=== PATIENT | female | born 1985 | race Caucasian/White ===

== ENCOUNTER 2024-11-23 12:03 | Emergency (ER) | payer OTHER, SELFPAY ==
[2024-11-23 12:05] VITALS: BP 146/90
--- NOTE | 2024-11-23 13:26 | EDRN ---
Pt weka and assisted to BR by this RN and back. Pt more coherehent than on arrival and moving better.
--- NOTE | 2024-11-23 14:42 | ED.GENMED ---
History of Present Illness
<James Parham DO - Last Filed: 11/25/24 00:14>
General
Chief Complaint: Abdominal Pain
Source: patient
Time Seen by Provider: 11/23/24 14:00
History of Present Illness
History of Present Illness:
39-year-old female presents emergency room complaining of right lower quad abdominal pain. Patient began having the pain approximately 3 days ago. Pain started after patient had a seizure. She does have a known history of epilepsy for which she
does take antiepileptics. She has had nausea vomiting diarrhea and abdominal discomfort after seizures previously but this is lasting longer and the pain seems worse today. She has had a tummy tuck but no intra-abdominal operations. She has an
IUD. She has not been before. She does have a history of ovarian cysts.
<ST CorneliusDE - Last Filed: 11/23/24 20:37>
General
Source: spouse
Past History
<James Parham DO - Last Filed: 11/25/24 00:14>
Past History
ED Past Medical History: Asthma, Psychiatric and Other (migraines)
ED Past Surgical History: Orthopedic and Other (breast augmentin/abdominoplasty)
Social History
Tobacco: Smoker
Alcohol: None
Drug: None
Personal:
Living: with family
Phy Exam
<James Parham DO - Last Filed: 11/25/24 00:14>
Physical Exam
Physical Exam:
General: Awake, Alert, Oriented X3. No acute distress.
Vitals: unremarkable
Head: Atraumatic
Eyes: Pupils equal, EOMI
Throat: Airway intact, no exudates
Neck: Trachea midline
Lungs: Clear and equal b/l
Heart: Regular rate, no murmurs
Abd: Soft, tender to palpation right lower quadrant, No pulsatile mass
Neuro: Nonfocal
Skin: Warm, dry, no rash
Extremities: pulses equal b/l, no edema
Course
Helgalt;James Parham, DO - Last Filed: 11/25/24 00:14>
Orders/Labs/Results
Orders:
Orders
11/23/24 14:21
Test Result ONCE
11/23/24 14:33
US Pelvis [US Pelvis Only (non-obstetric)] Urgent
Comment:
Reason For Exam: RLQ abdominal pain R/O ovarian torsion
11/23/24 14:40
0.9% Sodium Chloride 1000 ml [Nss] 1,000 ml IV BOLUS
Ketorolac [Toradol] 15 mg IV NOW STA
Ondansetron Injectable [Zofran] 4 mg IV NOW STA
11/23/24 15:13
CBC/With Diff [Complete Blood Count/With Diff] Urgent
CMP [Comprehensive Metabolic Panel] Urgent
, Serum Qualitative Screen [HCG, Serum Qualitative Screen] Urgent
11/23/24 15:52
UA [Urinalysis] Urgent
Date Specimen was Collected: 11/23/24
Time Specimen was Collected: 15:21
Urine Microscopic Urgent
Date Specimen was Collected: 11/23/24
Time Specimen was Collected: 15:21
11/23/24 16:33
Iohexol [Omnipaque] 50 ml .ROUTE .[facility]-MED ONE
11/23/24 16:34
CT Abd/pel W Iv And Oral Contr Urgent
Comment:
Reason For Exam: rlq abd pain
Iohexol [Omnipaque] See Protocol PO NOW STA
11/23/24 18:01
HYDROmorphone [Dilaudid] 0.5 mg IV NOW STA
Abnormal Lab Results
11/23/24 11/23/24
15:13 15:52
MCH 32.9 H pg
(27.0-31.0)
RDW 16.0 H %
(11.5-14.5)
Neutrophils % 75.6 H %
(42.2-75.2)
Lymphocytes % 18.4 L %
(20.5-51.1)
BUN 3 L mg/dl
(7-17)
Creatinine 0.5 L mg/dL
(0.6-1.0)
Glucose 118 H mg/dl
(70-99)
Albumin 5.1 H g/dl
(3.5-5.0)
Urine Ketones 3+ A
(Negative)
Urine Bacteria Few A
(Negative)
Urine Albumin 1+ A
(Neg - Trace)
11/23/24 15:13
11/23/24 15:13
Vital Signs
Initial and Last Documented VS:
Initial Vital Signs
Temp Pulse Resp BP Pulse Ox
97.9 F 98 20 146/90 96
11/23/24 12:05 11/23/24 12:05 11/23/24 12:05 11/23/24 12:05 11/23/24 12:05
Last Documented Vital Signs
Temp Pulse Resp BP Pulse Ox
97.9 F 68 20 130/90 98
11/23/24 12:05 11/23/24 16:31 11/23/24 12:05 11/23/24 20:00 11/23/24 20:00
Helgalt;JAX Shields - Last Filed: 11/23/24 20:37>
Orders/Labs/Results
Orders:
Orders
11/23/24 14:21
Test Result ONCE
11/23/24 14:33
US Pelvis [US Pelvis Only (non-obstetric)] Urgent
Comment:
Reason For Exam: RLQ abdominal pain R/O ovarian torsion
11/23/24 14:40
0.9% Sodium Chloride 1000 ml [Nss] 1,000 ml IV BOLUS
Ketorolac [Toradol] 15 mg IV NOW STA
Ondansetron Injectable [Zofran] 4 mg IV NOW STA
11/23/24 15:13
CBC/With Diff [Complete Blood Count/With Diff] Urgent
CMP [Comprehensive Metabolic Panel] Urgent
, Serum Qualitative Screen [HCG, Serum Qualitative Screen] Urgent
11/23/24 15:52
UA [Urinalysis] Urgent
Date Specimen was Collected: 11/23/24
Time Specimen was Collected: 15:21
Urine Microscopic Urgent
Date Specimen was Collected: 11/23/24
Time Specimen was Collected: 15:21
11/23/24 16:33
Iohexol [Omnipaque] 50 ml .ROUTE .[facility]
11/23/24 16:34
CT Abd/pel W Iv And Oral Contr Urgent
Comment:
Reason For Exam: rlq abd pain
Iohexol [Omnipaque] See Protocol PO NOW STA
11/23/24 18:01
HYDROmorphone [Dilaudid] 0.5 mg IV NOW STA
Abnormal Lab Results
11/23/24 11/23/24
15:13 15:52
MCH 32.9 H pg
(27.0-31.0)
RDW 16.0 H %
(11.5-14.5)
Neutrophils % 75.6 H %
(42.2-75.2)
Lymphocytes % 18.4 L %
(20.5-51.1)
BUN 3 L mg/dl
(7-17)
Creatinine 0.5 L mg/dL
(0.6-1.0)
Glucose 118 H mg/dl
(70-99)
Albumin 5.1 H g/dl
(3.5-5.0)
Urine Ketones 3+ A
(Negative)
Urine Bacteria Few A
(Negative)
Urine Albumin 1+ A
(Neg - Trace)
11/23/24 15:13
11/23/24 15:13
Vital Signs
Initial and Last Documented VS:
Initial Vital Signs
Temp Pulse Resp BP Pulse Ox
97.9 F 98 20 146/90 96
11/23/24 12:05 11/23/24 12:05 11/23/24 12:05 11/23/24 12:05 11/23/24 12:05
Last Documented Vital Signs
Temp Pulse Resp BP Pulse Ox
97.9 F 68 20 130/90 98
11/23/24 12:05 11/23/24 16:31 11/23/24 12:05 11/23/24 20:00 11/23/24 20:00
<James H. Prasad DO - Last Filed: 11/25/24 00:14>
MDM/Problems Addressed
Differential Diagnosis Includes:
Postictal headache, postictal abdominal pain. Ruptured ovarian cyst, appendicitis
MDM/Problems Addressed:
Patient presents complaining of headache but primarily right lower quadrant abdominal pain after having a seizure. Patient has known seizure disorder. She states she is compliant with her medication. Physical exam reveals that she is somewhat
tender in the right lower quadrant. Ultrasound shows no evidence of abnormality. A CT was ultimately obtained with IV and p.o. contrast. There is also showed no evidence of acute intraabdominal pathology. The patient's labs are reassuring with a
normal white count, normal electrolytes and essentially normal renal function. Urinalysis is normal. Patient was ultimately feeling somewhat better and was deemed stable for discharge home and outpatient management
<James Parham DO - Last Filed: 11/25/24 00:14>
*Radiology
Radiology exam reviewed: radiology read reviewed
*Pulse Oximetry
Patient hypoxic: no
*Critical Care Note
Total Time (30-74mins, 75-104mins- exclusive of procedures): Not Applicable
<JAX Shields - Last Filed: 11/23/24 20:37>
*Critical Care Note
Total Time (30-74mins, 75-104mins- exclusive of procedures): Not Applicable
ED Attending Note
<James Parham DO - Last Filed: 11/25/24 00:14>
-
Portions of this chart may have been created with voice recognition software.� Occasional wrong word or��sound alike� substitutions may have occurred due to the inherent limitations of voice recognition software.
Discharge Plan
Departure
Patient Disposition: Home (Routine Discharge)
Date of Disposition: 11/23/24
Time of Disposition: 20:27
Patient with high blood pressure during this ER visit?: No
Condition: Good
Discharge Problem:
Abdominal pain
Instructions: Abdominal Pain
Prescriptions:
No Action
venlafaxine [Effexor XR] 150 MG capsule,extended release 24hr
150 mg PO DAILY
lisinopril-hydrochlorothiazide 1 EACH tablet
1 ea PO DAILY
ciprofloxacin (mixture) 500 MG tablet, ER multiphase 24 hr
500 mg PO BID Qty: 12 0RF
metronidazole 500 MG tablet
500 mg PO Q8 Qty: 18 0RF
ondansetron HCl 4 MG tablet
4 mg PO Q8HPRN PRN (Reason: nausea and vomiting) Qty: 12 0RF
prochlorperazine maleate 10 MG tablet
10 mg PO Q8HPRN PRN (Reason: nausea/vomiting) Qty: 6 0RF
Referrals:
UNKNOWN - PT DOES,NOT KNOW [Family Provider] -
Activity Restrictions/Additional Instructions:
Your CAT scan does not show any evidence for surgical emergency. Your ultrasound also was reassuring. Your blood work shows a normal white blood cell count, normal hemoglobin, and normal chemistries. There is no evidence for a urinary tract
infection. I believe it is safe for you to be discharged home with a clear liquid diet for tonight. Return if you do not feel better by this time tomorrow.
Interventions
Interventions:
*Risk Screen - Suicide Last Done: 11/23/24 20:00
*General Assessment Last Done: 11/23/24 12:05
*Neglect/Abuse Screening Last Done: 11/23/24 20:00
*ED- Fall Risk Assessment Last Done: 11/23/24 20:00
*ED COVID-19 Vaccine History Last Done: 11/23/24 20:00
*Nursing Disposition Last Done: 11/23/24 20:34
NU-Nmyxzi-Ftfuaqrayb Assessment Last Done: 11/23/24 19:59
Discharge Date and Time
Discharge Date/Time: 11/23/24 20:41
Print Language: GEORGIAN
[2024-11-23] MEDS: NSS 1000 IV (14:44)
[2024-11-23] MEDS: ZOFRAN 4 MG IV (14:45)
[2024-11-23] MEDS: TORADOL 15 MG IV (14:46)
[2024-11-23 15:21] LABS: % Basophils 0.4 % (0-2); % Immature Granulocytes 0.5 % (0-0.5); % Lymphocytes 18.4 % (20.5-51.1); % Monocytes 5.1 % (1.7-9.3); % Neutrophils 75.6 % (42.2-75.2); Absolute Lymphocytes 1.5 10^3/uL (1.2-3.4); Absolute Monocytes 0.4 10^3/uL (0.1-0.6); Absolute Neutrophils 6.1 10^3/uL (1.4-6.5); Hematocrit 43.9 % (37.0-47.0); Hemoglobin 15.3 g/dL (12.0-16.0); Mean Corp Hgb Conc. 34.9 g/dL (33.0-37.0); Mean Corpuscular Hgb 32.9 pg (27.0-31.0); Mean Corpuscular Volume 94.4 fL (81.0-99.0); Mean Platelet Volume 9.7 fL (7.4-10.4); Nucleated Red Blood Cells % 0 %; Platelet Count 260 10^3/uL (130-400); Red Blood Cell Count 4.65 10^6/uL (4.20-5.40)
[2024-11-23 15:34] LABS: HCG, Serum Qualitative Screen Negative
[2024-11-23 15:37] LABS: ALT (SGPT) < 10 U/L (0-35); AST (SGOT) 18 U/L (14-36); Albumin 5.1 g/dl (3.5-5.0); Alkaline Phosphatase 86 U/L (38-126); Blood Urea Nitrogen 3 mg/dl (7-17); Calcium 9.6 mg/dl (8.4-10.2); Carbon Dioxide 26 mmol/L (22-30); Chloride 105 mmol/L (98-107); Glucose 118 mg/dl (70-99); Potassium 3.6 mmol/L (3.5-5.1); Sodium 143 mmol/L (135-145); Total Bilirubin 0.5 mg/dl (0.2-1.3); Total Protein 7.2 g/dl (6.3-8.2); eGFR > 60.00
[2024-11-23 16:00] LABS: Urine Albumin 1+ (Neg - Trace); Urine Bilirubin Negative (Negative); Urine Character Clear (Clear); Urine Color Yellow; Urine Glucose Negative (Negative); Urine Ketone 3+ (Negative); Urine Leukocyte Negative (Negative); Urine Nitrite Negative (Negative); Urine Occult Blood Negative (Negative); Urine Urobilinogen Negative (Neg - 1+)
[2024-11-23 16:17] LABS: Urine Squamous Cell >30 /LPF (Few)
[2024-11-23 16:18] LABS: Urine Bacteria Few (Negative); Urine Red Blood Cell 0-2 /HPF (0-2); Urine White Cell 0-2 /HPF (0-5)
[2024-11-23 16:29] VITALS: BMI 26.5
[2024-11-23 16:31] VITALS: BP 119/80
[2024-11-23] MEDS: OMNIPAQUE 50 ML PO (16:37)
[2024-11-23 17:00] VITALS: BP 126/84
[2024-11-23] MEDS: DILAUDID 0.5 MG IV (19:56)
[2024-11-23 20:00] VITALS: BP 130/90
== END 2024-11-23 20:41 | disposition home or self-care (01) ==
LOC: EMR 12:03
PROVIDERS: EMERGENCY PHYSICIAN Emergency Medicine
DX: R10.31 Right lower quadrant pain (principal); G40.909 Epilepsy, unspecified, not intractable, without status epilepticus; F17.200 Nicotine dependence, unspecified, uncomplicated
CPT/HCPCS: 99285; 96374; 96375 ×2; 96361; 74177; 76856; 80053; 81003; 81015; 84703; 85025; Q9967

== ENCOUNTER 2025-02-15 13:21 | Emergency (ER) | payer OTHER, SELFPAY ==
[2025-02-15 13:24] VITALS: BP 140/95
[2025-02-15 13:56] LABS: Hematocrit 44.3 % (37.0-47.0); Hemoglobin 15.4 g/dL (12.0-16.0); Mean Corp Hgb Conc. 34.8 g/dL (33.0-37.0); Mean Corpuscular Volume 94.9 fL (81.0-99.0); Nucleated Red Blood Cells % 0 %; Platelet Count 248 10^3/uL (130-400); Red Cell Dist. Width 13.8 % (11.5-14.5)
[2025-02-15 14:28] LABS: HCG, Serum Qualitative Screen Negative
[2025-02-15 14:31] LABS: ALT (SGPT) < 10 U/L (0-35); AST (SGOT) 17 U/L (14-36); Albumin 5.0 g/dl (3.5-5.0); Alkaline Phosphatase 72 U/L (38-126); Blood Urea Nitrogen 3 mg/dl (7-17); Calcium 9.5 mg/dl (8.4-10.2); Carbon Dioxide 23 mmol/L (22-30); Chloride 106 mmol/L (98-107); Glucose 118 mg/dl (70-99); Lipase 140 U/L (23-300); Potassium 3.6 mmol/L (3.5-5.1); Sodium 140 mmol/L (135-145); Total Protein 7.6 g/dl (6.3-8.2); eGFR > 60.00
--- NOTE | 2025-02-15 16:34 | ED.GENMED ---
History of Present Illness
General
Chief Complaint: Abdominal Pain
Source: patient, spouse, previous radiology exam and previous hospital records
Exam Limitations: altered mental status
Time Seen by Provider: 02/15/25 16:17
Nursing documentation reviewed up to this point in time: agreed with
History of Present Illness
History of Present Illness:
39-year-old female accompanied by her spouse, this is her 6 or 8 episode of right lower abdominal pain, seen in the ER few times had CAT scans discharged to home states she felt better after IV fluids currently gets these attacks and gets
very anxious she cannot talk very much, looks like she suffers with some mental illness, alcoholism, PTSD?, Tells me that she has seen TR[employer] OPERATOR for this, she is not , says that she is in the middle of her cycle, no definitive diagnosis has
been made
Past History
Past History
ED Past Medical History: Asthma, Psychiatric and Other (migraines)
ED Past Surgical History: Orthopedic and Other (breast augmentin/abdominoplasty)
Social History
Tobacco: Smoker
Alcohol: None
Drug: None
Personal:
Living: with family
Employment: Employed
Review of Systems
Review of Systems
All Other Systems: Not applicable
Constitutional: Denies fever or fatigue
Respiratory: Reports no symptoms
Cardiac: Denies chest pain
ABD/GI: Reports abdominal pain, nausea, anorexia and pain; Denies vomiting, diarrhea, bloody stools or black stools
: Reports no symptoms
Skin: Reports no symptoms
Psychiatric: Reports depression and anxiety
Phy Exam
Physical Exam
Physical Exam:
Physical Exam
General: 39 of female anxious appearing speaking very slow
Neck: no jaundice
Heart: s1/s2 regular rate and rhythm, no murmur. equal radial pulses.
Lungs: no acute respiratory distress. clear bilaterally
Abdomen: Soft, tender in the right lower abdomen
Neuro: alert and oriented. no focal neurological deficits
Skin: no rash
Psychiatric: Flat affect almost mute at times
Extremities: no edema.
Course
Orders/Labs/Results
Orders:
Orders
02/15/25 13:28
Test Result ONCE
02/15/25 13:35
Alcohol Urgent
Complete Blood Count/With Diff Urgent
Comprehensive Metabolic Panel Urgent
HCG, Serum Qualitative Screen Urgent
Lipase Urgent
02/15/25 16:30
0.9% Sodium Chloride 1000 ml [Nss] 1,000 ml IV BOLUS
Ketorolac [Toradol] 30 mg IV NOW STA
Ondansetron Injectable [Zofran] 4 mg IV NOW STA
02/15/25 16:31
US Abdomen - Appendix Only Urgent
Comment:
Reason For Exam: rlq pain
US Pelvis Only (non-obstetric) Urgent
Comment:
Reason For Exam: rlq pain
Abnormal Lab Results
02/15/25
13:35
MCH 33.0 H pg
(27.0-31.0)
MPV 10.5 H fL
(7.4-10.4)
Absolute Neuts (auto) 6.9 H 10^3/uL
(1.4-6.5)
BUN 3 L mg/dl
(7-17)
Creatinine 0.5 L mg/dL
(0.6-1.0)
Glucose 118 H mg/dl
(70-99)
02/15/25 13:35
02/15/25 13:35
Vital Signs
Initial and Last Documented VS:
Initial Vital Signs
Temp Pulse Resp BP Pulse Ox
97.7 F 131 18 140/95 99
02/15/25 13:24 02/15/25 13:24 02/15/25 13:24 02/15/25 13:24 02/15/25 13:24
Last Documented Vital Signs
Temp Pulse Resp BP Pulse Ox
97.7 F 81 17 139/76 100
02/15/25 13:24 02/15/25 19:13 02/15/25 19:13 02/15/25 19:13 02/15/25 19:13
MDM/Problems Addressed
Differential Diagnosis Includes:
Ovarian cyst, recurrent abdominal pain, abdominal migraine?, Endometriosis, diverticular disease, less likely
MDM/Problems Addressed:
Recurrent abdominal pain
Chronic conditions affecting care: Psychiatric illness
Acute Exacerbation and/or Progression of Chronic Illness: Psychiatric illness
*Radiology
Radiology exam reviewed: radiology read reviewed
*Pulse Oximetry
SaO2: 99
Oxygen Mode of Delivery: Room air
Patient hypoxic: no
*Critical Care Note
Total Time (30-74mins, 75-104mins- exclusive of procedures): Not Applicable
Update Note
Update Note:
Update recurrent issue, hCG noted white count noted prior CTs noted does have a history of migraines, would like not to do another CT due to radiation risks shared decision making with patient and spouse we will get her feeling better with some
nonnarcotic analgesia, screening ultrasounds, serial abdominal exams
7:30 PM labs noted ultrasound reports noted
Patient feeling much better abdomen soft nontender she has tolerated a few epi catherine
Tells me that she is seeing gynecology and GI previously, she is prescribed a Lidoderm patch
ED Attending Note
-
Portions of this chart may have been created with voice recognition software.� Occasional wrong word or��sound alike� substitutions may have occurred due to the inherent limitations of voice recognition software.
Discharge Plan
Departure
Patient Disposition: Home (Routine Discharge)
Date of Disposition: 02/15/25
Time of Disposition: 19:42
Patient with high blood pressure during this ER visit?: No
Condition: Good
Discharge Problem:
Abdominal pain
Instructions: Abdominal Pain
Prescriptions:
No Action
venlafaxine [Effexor XR] 150 MG capsule,extended release 24hr
150 mg PO DAILY
lisinopril-hydrochlorothiazide 1 EACH tablet
1 ea PO DAILY
ciprofloxacin (mixture) 500 MG tablet, ER multiphase 24 hr
500 mg PO BID Qty: 12 0RF
metronidazole 500 MG tablet
500 mg PO Q8 Qty: 18 0RF
ondansetron HCl 4 MG tablet
4 mg PO Q8HPRN PRN (Reason: nausea and vomiting) Qty: 12 0RF
prochlorperazine maleate 10 MG tablet
10 mg PO Q8HPRN PRN (Reason: nausea/vomiting) Qty: 6 0RF
Referrals:
UNKNOWN - PT DOES,NOT KNOW [Family Provider]
Interventions
Interventions:
*Risk Screen - Suicide Last Done: 02/15/25 13:24
*General Assessment Last Done: 02/15/25 13:27
*Neglect/Abuse Screening Last Done: 02/15/25 13:24
*ED- Fall Risk Assessment Last Done: 02/15/25 17:06
*ED COVID-19 Vaccine History Last Done: 02/15/25 17:06
RF-Ulwwui-Ndvtxvnuhi Assessment Last Done: 02/15/25 19:14
Discharge Date and Time
Print Language: DJIBOUTIAN
[2025-02-15] MEDS: TORADOL 30 MG IV (17:01)
[2025-02-15] MEDS: NSS 1000 IV (17:01)
[2025-02-15] MEDS: ZOFRAN 4 MG IV (17:01)
[2025-02-15 17:03] VITALS: BMI 25.0
[2025-02-15 19:13] VITALS: BP 139/76
== END 2025-02-15 20:18 | disposition home or self-care (01) ==
LOC: EMR 13:21
PROVIDERS: Student in an Organized Health Care Education/Training Program; EMERGENCY PHYSICIAN Emergency Medicine
DX: R10.30 Lower abdominal pain, unspecified (principal); J45.909 Unspecified asthma, uncomplicated; F17.200 Nicotine dependence, unspecified, uncomplicated
CPT/HCPCS: 99284; 96374; 96375; 96361; 76705; 76856; 80053; 82077; 83690; 84703; 85025